=== PATIENT | male | born 1935 | race Caucasian/White ===

== ENCOUNTER 2017-02-13 11:25 | Inpatient (IN) | payer OTHER ==
[~2017-02-13] VITALS: Ht 177.8 cm; Wt 84.8 kg
[2017-02-13] MEDS ORDERED: FLORANEX TABLE1 EACH PO (15:20)
[2017-02-13] MEDS ORDERED: GLUCOTROL5 MG PO (15:21)
[2017-02-13] MEDS ORDERED: LEVOXYL100 MCG PO (15:21)
[2017-02-13] MEDS ORDERED: NAMENDA XR14 MG PO (15:21)
[2017-02-13] MEDS ORDERED: PATADAY2.5 ML OP (15:22)
[2017-02-13] MEDS ORDERED: BUMETANIDE1 MG PO (15:22)
[2017-02-13] MEDS ORDERED: K-TAB ER10 MEQ PO (15:22)
[2017-02-13] MEDS ORDERED: BAYER CHEWABLE81 MG PO (15:23)
[2017-02-13] MEDS ORDERED: DALIRESP500 MCG PO (15:23)
[2017-02-13] MEDS ORDERED: MAGOX 400400 MG PO (15:23)
[2017-02-13] MEDS ORDERED: PROTONIX 40 MG40 M1 PO (15:24)
[2017-02-13] MEDS ORDERED: CLARITIN5 MG PO (15:24)
[2017-02-13] MEDS ORDERED: ZESTRIL2.5 MG PO (15:25)
[2017-02-13] MEDS ORDERED: CYMBALTA20 MG PO (15:25)
[2017-02-13] MEDS ORDERED: MULTIVITAMINS1 EAC1 PO (15:25)
[2017-02-13] MEDS ORDERED: METOLAZONE2.5 MG PO (15:26)
[2017-02-13] MEDS ORDERED: DILTIAZEM 12HR60 MG PO (15:26)
[2017-02-13] MEDS ORDERED: DOCUSATE CALCI240 MG PO (15:27)
[2017-02-13] MEDS ORDERED: LOPRESSOR100 MG PO (15:27)
[2017-02-13] MEDS ORDERED: MUCINEX D ER 61 EACH PO (15:29)
[2017-02-13] MEDS ORDERED: ADVAIR 100-501 EACH INH (15:30)
[2017-02-13] MEDS ORDERED: LIPITOR TAB 1010 MG PO (15:30)
[2017-02-13] MEDS ORDERED: NORCO 5-325 TA1 EACH PO (15:30)
[2017-02-13] MEDS ORDERED: SINGULAIR10 MG PO (15:31)
[2017-02-13] MEDS ORDERED: ARICEPT10 MG PO (15:31)
[2017-02-13] MEDS ORDERED: FLONASE 0.05% N16 GM (15:31)
[2017-02-13] MEDS ORDERED: MELADOX3 MG PO (15:32)
[2017-02-13] MEDS ORDERED: ENULOSE10 GM/15 M PO (15:32)
[2017-02-13] MEDS ORDERED: DESYREL 50 MG T50 MG PO (15:32)
[2017-02-13] MEDS ORDERED: DULCOLAX10 MG PR (15:33)
[2017-02-13] MEDS ORDERED: IPRAT-ALBUT 0.5-3 ML INH (15:33)
[2017-02-13] MEDS ORDERED: MILK OF MA400 MG/5 M PO (15:34)
[2017-02-13] MEDS ORDERED: ZOFRAN ODT4 MG PO (15:36)
[2017-02-14 05:52] LABS: HEMOGLOBIN 10.4 gm/dl (14.0-17.5); RED BLOOD COUNT 3.42 M/UL (4.20-5.50); WHITE BLOOD COUNT 12.2 K/UL (4.5-11.0)
[2017-02-14 23:20] LABS: RED BLOOD COUNT 3.26 M/UL (4.20-5.50); WHITE BLOOD COUNT 13.3 K/UL (4.5-11.0)
[2017-02-15 03:57] LABS: HEMOGLOBIN 9.4 gm/dl (14.0-17.5); RED BLOOD COUNT 3.11 M/UL (4.20-5.50)
--- NOTE | 2017-02-15 12:22 | NUR ---
1130- PATIENT SITTING IN CHAIR, 2 RNS ASSISTED PATIENT BACK TO BED. UPON TRANSFER, PATIENT EXHIBITED SIGNS OF HYPOTENSION, AND WAS SLOWLY ASSISTED TO THE FLOOR. HELP IMMEDIATELY ENTERED ROOM AND WAS ABLE TO ASSIST PATIENT BACK TO BED SAFELY. BP 80'S, HR 110'S AFIB. PATIENT A&OX3, RESPONDING AND FOLLOWING COMMANDS. PATIENT STATES, " I AM SHORT OF BREATH". SATS 90'S ON RA. PLACED BACK ON 2L NC FOR COMFORT. WILL CONTINUE TO MONITOR.
[2017-02-16 03:24] LABS: HEMOGLOBIN 9.1 gm/dl (14.0-17.5); RED BLOOD COUNT 2.96 M/UL (4.20-5.50); WHITE BLOOD COUNT 12.5 K/UL (4.5-11.0)
[2017-02-17 03:38] LABS: HEMOGLOBIN 7.9 gm/dl (14.0-17.5); WHITE BLOOD COUNT 11.5 K/UL (4.5-11.0)
[2017-02-17 03:46] LABS: RED BLOOD COUNT 2.59 M/UL (4.20-5.50)
[2017-02-18 05:19] LABS: HEMOGLOBIN 7.2 gm/dl (14.0-17.5); RED BLOOD COUNT 2.36 M/UL (4.20-5.50); WHITE BLOOD COUNT 8.9 K/UL (4.5-11.0)
[2017-02-19 05:49] LABS: HEMOGLOBIN 8.2 gm/dl (14.0-17.5); WHITE BLOOD COUNT 8.3 K/UL (4.5-11.0)
[2017-02-19 05:52] LABS: RED BLOOD COUNT 2.72 M/UL (4.20-5.50)
[2017-02-21 03:12] LABS: HEMOGLOBIN 8.2 gm/dl (14.0-17.5); RED BLOOD COUNT 2.7 M/UL (4.20-5.50); WHITE BLOOD COUNT 9.1 K/UL (4.5-11.0)
[2017-02-23 05:12] LABS: RED BLOOD COUNT 2.68 M/UL (4.20-5.50); WHITE BLOOD COUNT 9.9 K/UL (4.5-11.0)
[2017-02-23] MEDS ORDERED: NORCO 10-325 T1 EACH PO (15:27)
[2017-02-23] MEDS ORDERED: ELIQUIS2.5 MG PO (15:28)
[2017-02-23] MEDS ORDERED: FERROUS SU300 MG/5 M PO (15:36)
[2017-02-23] MEDS ORDERED: LANOXIN TAB0.125 MG PO (15:55)
== END 2017-02-23 17:38 | DRG 470 ==
LOC: PROG CARE 14:27 → M/S 14:27 → PROG CARE 02-14 23:06
PROVIDERS: Hospitalist; Internal Medicine Cardiovascular Disease; Orthopaedic Surgery; ADMIT Internal Medicine
PROC: 0SR90JZ Replacement of Right Hip Joint with Synthetic Substitute, Open Approach (ICD-10-PCS; principal; 2017-02-14 19:15)
PROC: 05HM33Z Insertion of Infusion Device into Right Internal Jugular Vein, Percutaneous Approach (ICD-10-PCS; 2017-02-17)
PROC: B543ZZA Ultrasonography of Right Jugular Veins, Guidance (ICD-10-PCS; 2017-02-17)
DX: S72.011A Unspecified intracapsular fracture of right femur, initial encounter for closed fracture (principal); N17.9 Acute kidney failure, unspecified; W01.0XXA Fall on same level from slipping, tripping and stumbling without subsequent striking against object, initial encounter; Y92.012 Bathroom of single-family (private) house as the place of occurrence of the external cause; N18.3 Chronic kidney disease, stage 3 (moderate); D64.9 Anemia, unspecified; I12.9 Hypertensive chronic kidney disease with stage 1 through stage 4 chronic kidney disease, or unspecified chronic kidney disease; E78.5 Hyperlipidemia, unspecified; F03.90 Unspecified dementia, unspecified severity, without behavioral disturbance, psychotic disturbance, mood disturbance, and anxiety; N40.0 Benign prostatic hyperplasia without lower urinary tract symptoms; F32.9 Major depressive disorder, single episode, unspecified; F41.9 Anxiety disorder, unspecified; R94.39 Abnormal result of other cardiovascular function study; I48.2 Chronic atrial fibrillation; K21.9 Gastro-esophageal reflux disease without esophagitis; Y93.89 Activity, other specified; E03.9 Hypothyroidism, unspecified; Z87.891 Personal history of nicotine dependence; Z79.82 Long term (current) use of aspirin; Z79.01 Long term (current) use of anticoagulants
CPT/HCPCS: ECHO; 36415; 36430; 71010; 73501; 73502; 78452; 78582; 80048; 82270; 82272; 82550; 82553; 83540; 83550; 83735; 84484; 85025; 85027; 86850; 86900; 86901; 86920; 93005; 93017; 93306; 94640; 94664; 97110; 97116; 97530; 97535; A9502; A9540; A9567; C1713; C1751; C1776; J0690; J2001; J2270; J2370; J2550; J2710; J2785; J3010; J7030; J7050; J7120; P9016